=== PATIENT | male | born 1970 | race Caucasian/White ===

== ENCOUNTER 2020-07-17 14:57 | Emergency (ER) | payer OTHER ==
[~2020-07-17] VITALS: Ht 180.3 cm; Wt 81.6 kg
[2020-07-17 15:05] VITALS: Ht 180.3 cm; Wt 81.6 kg
[2020-07-17 15:44] VITALS: BP 150/100
== END 2020-07-17 15:44 | disposition other institution (70) ==
LOC: ED 14:57
DX: Z02.89 Encounter for other administrative examinations (principal)